=== PATIENT | female | born 1960 | race Caucasian/White ===

== ENCOUNTER → 2021-03-28 | Outpatient (CLI) | payer BC ==
[~2021-03-28] MED LIST: PERCOCET 5-3251 EACH PO
== END ==
LOC: CT 10:29
DX: R79.89 Other specified abnormal findings of blood chemistry (principal); C50.919 Malignant neoplasm of unspecified site of unspecified female breast; D25.9 Leiomyoma of uterus, unspecified
CPT/HCPCS: Q9967

== ENCOUNTER 2021-05-16 12:54 | Emergency (ER) | payer BC ==
[2021-05-16] MEDS ORDERED: PERCOCET 5-3251 EACH PO (14:57)
== END 2021-05-16 15:35 | disposition home or self-care (01) ==
LOC: ER1 12:54
DX: S82.61XA Displaced fracture of lateral malleolus of right fibula, initial encounter for closed fracture (principal); X50.1XXA Overexertion from prolonged static or awkward postures, initial encounter; Y92.009 Unspecified place in unspecified non-institutional (private) residence as the place of occurrence of the external cause
CPT/HCPCS: 29515; 73610; 99283

== ENCOUNTER → 2021-05-20 | Outpatient (CLI) | payer BC | LOC: KOH-I 16:03 | DX: S82.431D Displaced oblique fracture of shaft of right fibula, subsequent encounter for closed fracture with routine healing (principal) | CPT/HCPCS: 73610 ==

== ENCOUNTER 2021-05-26 09:53 | Emergency (ER) | payer BC ==
[~2021-05-26] VITALS: Ht 167.6 cm; Wt 90.7 kg
== END 2021-05-26 12:46 | disposition home or self-care (01) ==
LOC: ER1 09:53
DX: Z23 Encounter for immunization (principal); U07.1 COVID-19; Z88.5 Allergy status to narcotic agent; Z90.49 Acquired absence of other specified parts of digestive tract
CPT/HCPCS: 99283; M0243

== ENCOUNTER → 2021-06-19 | Outpatient (CLI) | payer BC | LOC: KOH-I 09:46 | DX: S82.61XA Displaced fracture of lateral malleolus of right fibula, initial encounter for closed fracture (principal) | CPT/HCPCS: 73610 ==

== ENCOUNTER → 2021-07-17 | Outpatient (CLI) | payer BC | LOC: KOH-I 09:02 | DX: S82.831D Other fracture of upper and lower end of right fibula, subsequent encounter for closed fracture with routine healing (principal); M79.671 Pain in right foot; X58.XXXD Exposure to other specified factors, subsequent encounter; M79.89 Other specified soft tissue disorders | CPT/HCPCS: 73610; 73630 ==

== ENCOUNTER → 2021-08-12 | Outpatient (CLI) | payer BC | LOC: KOH-I 09:34 | DX: S82.831A Other fracture of upper and lower end of right fibula, initial encounter for closed fracture (principal) | CPT/HCPCS: 73610; 73630 ==

== ENCOUNTER → 2021-08-14 | Outpatient (CLI) | payer BC | LOC: KOH-I 08:08 | DX: S82.831D Other fracture of upper and lower end of right fibula, subsequent encounter for closed fracture with routine healing (principal); S92.351D Displaced fracture of fifth metatarsal bone, right foot, subsequent encounter for fracture with routine healing | CPT/HCPCS: 73718 ==

== ENCOUNTER → 2021-10-16 | Outpatient (CLI) | payer BC | LOC: KOH-I 16:07 | DX: S92.351A Displaced fracture of fifth metatarsal bone, right foot, initial encounter for closed fracture (principal); S82.61XA Displaced fracture of lateral malleolus of right fibula, initial encounter for closed fracture | CPT/HCPCS: 73610; 73630 ==

== ENCOUNTER → 2021-11-27 | Outpatient (CLI) | payer BC | LOC: KOH-I 15:16 | DX: S82.891A Other fracture of right lower leg, initial encounter for closed fracture (principal); S92.341A Displaced fracture of fourth metatarsal bone, right foot, initial encounter for closed fracture | CPT/HCPCS: 73610; 73630 ==

== ENCOUNTER 2022-04-12 19:14 | Emergency (ER) | payer BC ==
[2022-04-12 19:52] LABS: RED BLOOD COUNT 4.45 M/UL (4.00-5.10); WHITE BLOOD COUNT 6.1 K/UL (4.5-11.0)
[2022-04-12 20:34] LABS: BUN/CREATININE RATIO 19 (0-10)
[2022-04-12] MEDS ORDERED: NORFLEX 100 MG100 MG PO (23:55)
[2022-04-12] MEDS ORDERED: IBUPROFEN600 MG PO (23:55)
== END 2022-04-13 00:03 | disposition home or self-care (01) ==
LOC: ER1 19:14
PROVIDERS: Physician Assistant
DX: R07.89 Other chest pain (principal); M54.6 Pain in thoracic spine; Z88.5 Allergy status to narcotic agent; Z85.3 Personal history of malignant neoplasm of breast; Z20.822 Contact with and (suspected) exposure to COVID-19; Z79.82 Long term (current) use of aspirin
CPT/HCPCS: 0240U; 71045; 80053; 82550; 82553; 83880; 84484; 85025; 85379; 85610; 85730; 93005; 99285; Q9967

== ENCOUNTER → 2022-04-15 | Outpatient (CLI) | payer BC ==
[~2022-04-15] MED LIST changes: +IBUPROFEN600 MG PO; +NORFLEX 100 MG100 MG PO
== END ==
LOC: KOH-I 10:25
DX: M51.34 Other intervertebral disc degeneration, thoracic region (principal)
CPT/HCPCS: 72070